=== PATIENT | female | born 1955 | race Asian ===

== ENCOUNTER 2022-07-23 08:32 | Inpatient (IN) | payer BC ==
[~2022-07-23] VITALS: Ht 162.6 cm; Wt 74.9 kg
[2022-07-23] MEDS ORDERED: CEFAZOLIN SOD 2 GM in D5W 50 ML IV ONE (09:30)
[2022-07-23] MEDS ORDERED: traMADol HCL HCL 50 MG TABLET (ULTRAM) PO PRN (11:00)
[2022-07-23] MEDS ORDERED: LORATADINE 10 MG TABLET PO PRN (11:00)
[2022-07-23] MEDS ORDERED: LOSA50TA3 PO (11:39)
[2022-07-23] MEDS ORDERED: LOVA40TA75 PO (11:39)
[2022-07-23] MEDS ORDERED: ACET-73 PO (11:39)
[2022-07-23] MEDS ORDERED: TRIA50CA PO (11:39)
[2022-07-23] MEDS ORDERED: LR 1,000 ML IV SCH (13:00)
[2022-07-23] MEDS ORDERED: METOCLOPRAMIDE HCL 10 MG/2 ML VIAL IVP PRN ×2 (13:00→15:45)
[2022-07-23] MEDS ORDERED: KETOROLAC TROMETHAMINE 30 MG VIAL IVP PRN (13:00)
[2022-07-23] MEDS ORDERED: MEPERIDINE HCL/PF 25 MG/ML DISP.SYRIN IVP PRN (13:00)
[2022-07-23] MEDS ORDERED: HYDROmorphone 1 MG/ML INJ. CARTRIDGE IVP PRN ×4 (13:00→17:00)
[2022-07-23] MEDS ORDERED: ONDANSETRON HCL 4 MG/2 ML VIAL IVP PRN ×2 (13:00→17:00)
[2022-07-23] MEDS ORDERED: BUPIVACAINE LIPOSOME/PF 266 MG/20 ML VIAL INFIL ONE (15:18)
[2022-07-23] MEDS ORDERED: LACTULOSE 20 GM/30 ML UDC PO PRN (15:45)
[2022-07-23] MEDS ORDERED: NALOXONE HCL 0.4 MG/ML AMP (NARCAN) IVP PRN ×3 (15:45)
[2022-07-23] MEDS ORDERED: DIPHENHYDRAMINE HCL 25 MG CAPSULE PO PRN (15:45)
[2022-07-23] MEDS ORDERED: BISACODYL 10 MG/SUPPOSITORY RC PRN (15:45)
[2022-07-23] MEDS ORDERED: VANCOMYCIN HCL 1,000 MG in NS 250 ML IV ONE (17:00)
[2022-07-23] MEDS: HYDROmorphone 1 MG/ML INJ. CARTRIDGE ONE ×2 (18:15→18:25)
--- NOTE | 2022-07-23 18:40 | NUR ---
CONSULTATION PAGED/CALLED Reason for Consultation: CHEST PAIN Person Who was Notified: PER ORDER WAS ALREADY TEXT Consulting Physician: Beatrice PINEDA Medical Or Surgical Instrument Maker Specialty: Ordering Physician: MANUEL
[2022-07-23 18:45] VITALS: BP_SYST 130
--- NOTE | 2022-07-23 18:57 | NUR ---
Received the pt from OR to 109A at 1830. Pt has been reporting chest pressure since the PACU and still rates mid epigastric pressure 8-9/10. Pt has been frequently belching but denied nausea. Abd soft but hypoactive. Currently ST 100's on tele monitor but remaining VS stable. Pt is reporting dizziness with her eye open but denied any visual changes, Pupils 3B. Madelaine, battery charger conveyor line, stated she has already spoken with Dr. Beatrice Daniel and repeat EKG has been ordered. Prior was showing anterolateral ischemia. Pt's lung santoyo clear and on 2L NC. The left knee has immobilizer with wound vac, currently icing knee. Pulses are present and strong. SCD to RLE. Daughter is at bedside and pt educated bank operations officer light. RH PIV
--- NOTE | 2022-07-23 19:15 | NUR ---
OPENING NOTE REPORT RECEIVED FROM DAYSHIFT NURSE. PATIENT RECEIVE LYING IN BED, AWAKE, NO S/S OF ACUTE DISTRESS. PATIENT STATES SHE IS COMFORTABLE. BREATHING EVEN AND UNLABORED. IV SITE PATENT, NO SIGNS OF INFILTRATION OR INFECTION NOTED. LEFT FOOT ELEVATED. WOUND VAC ATTACHED, SECURED, AND OPERATING WELL. CALL LIGHT WITH PATIENT. BED ALARM ON. BED IS LOCKED AND AT LOWEST POSITION. WILL CONTINUE TO MONITOR.
[2022-07-23] MEDS ORDERED: *LOVENOX 1MG/KG Q12H/PHARMACY XX ONE (20:00)
[2022-07-23] MEDS: KETOROLAC TROMETHAMINE 10 MG TABLET (TORADOL) PO SCH (20:02)
[2022-07-23 20:51] LABS: BASOPHILS % (AUTO) 0.1 % (0.0-2.0); HEMATOCRIT 34.9 % (36-48); HEMOGLOBIN 11.4 g/dL (12.0-16.0); LYMPHOCYTES # (AUTO) 1.5 K/uL (1.0-5.5); LYMPHOCYTES % (AUTO) 8.1 % (20.5-51.5); MEAN CORPUSCULAR HEMOGLOBIN 29 pg (27-31); MEAN CORPUSCULAR HGB CONC 33 % (32-36); MEAN CORPUSCULAR VOLUME 88 fL (79.0-98.0); MONOCYTES # (AUTO) 0.7 K/uL (0.0-1.0); NEUTROPHILS # (AUTO) 16.1 K/uL (1.8-7.7); NEUTROPHILS % (AUTO) 87.8 % (40.0-70.0); PLATELET COUNT (AUTO) 449 K/uL (130-430); RED BLOOD CELL COUNT(AUTO) 3.99 MIL/uL (4.2-6.2); RED CELL DISTRIBUTION WIDTH 13.2 % (9.0-15.0); WHITE BLOOD COUNT (AUTO) 18.3 K/uL (4.8-10.8)
[2022-07-23 22:36] LABS: ALANINE AMINOTRANSFERASE 28 U/L (12-78); ANION GAP 11 (5-15); ASPARTATE AMINOTRANSFERASE 48 U/L (10-37); CHLORIDE 100 mmol/L (98-107); CREATININE 1.09 mg/dL (0.55-1.30); GFR AFRICAN AMERICAN 65 mL/min (>90); GLUCOSE 260 mg/dL (70-99); TOTAL BILIRUBIN 0.4 mg/dL (0.0-1.0); UREA NITROGEN, BLOOD 19 mg/dL (8-21)
[2022-07-23] MEDS ORDERED: ENOXAPARIN SODIUM 80 MG/0.8 ML SYRINGE SUBCUT SCH (23:00)
--- NOTE | 2022-07-23 23:00 | NUR ---
ROUNDS PATIENT IN BED RESTING. HAS YET TO VOID. PATIENT STATED SHE WANTS TO WAIT A LITTLE BIT MORE AND TRY TO VOID, HOLD OFF STRAIGHT CATH AT THIS TIME. ALL NEEDS MET. WILL MONITOR.
[2022-07-23] MEDS: ACETAMINOPHEN 500 MG TABLET PO SCH (23:14)
[2022-07-23] MEDS: SENNOSIDES/DOCUSATE SODIUM 1 TAB TABLET(SENOKOT-S) PO SCH (23:14)
[2022-07-23] MEDS ORDERED: PIPERACILLIN/TAZOBACTAM 3.375 GM/VIAL (ZOSYN) IV ONE (23:29)
[2022-07-24] MEDS: PIPERACILLIN/TAZO 3.375/DEX-IS 50 ML IV SCH ×2 (00:14→05:15)
[2022-07-24] MEDS: KETOROLAC TROMETHAMINE 10 MG TABLET (TORADOL) PO SCH ×2 (00:50→10:22)
[2022-07-24 00:52] VITALS: BP_SYST 121
--- NOTE | 2022-07-24 01:00 | NUR ---
BLADDER SCAN/STRAIGHT CATH BLADDER SCAN DONE AT THIS TIME, 600 ML DETECTED. STRAIGHT CATH INSERTED, 600 ML IMMEDIATE RETURN. PATIENT TOLERATED WELL. SAMPLE COLLECTED FOR PROTOCOL UA. ALL NEEDS MET. WILL MONITOR.
[2022-07-24 01:47] LABS: BILIRUBIN,URINE NEGATIVE (NEGATIVE); BLOOD, URINE NEGATIVE (NEGATIVE); CLARITY/URINE CLEAR (CLEAR); COLOR,URINE YELLOW (YELLOW); GLUCOSE,URINE NEGATIVE (NEGATIVE); KETONES,URINE 1+ (NEGATIVE); LEUKOCYTE ESTERASE ,URINE NEGATIVE (NEGATIVE); NITRITE, URINE NEGATIVE (NEGATIVE); PROTEIN URINE NEGATIVE (NEGATIVE); UROBILINOGEN,URINE 0.2 (0.2-1.0)
[2022-07-24 02:10] VITALS: BP_SYST 123
--- NOTE | 2022-07-24 05:30 | NUR ---
BLADDER SCAN <200ML DETECTED AT THIS TIME. ALL NEEDS MET. WILL MONITOR.
[2022-07-24] MEDS: oxyCODONE HCL 5 MG TABLET PO PRN (05:34)
[2022-07-24 05:35] LABS: BASOPHILS % (AUTO) 0.1 % (0.0-2.0); HEMATOCRIT 31.5 % (36-48); HEMOGLOBIN 10.4 g/dL (12.0-16.0); LYMPHOCYTES # (AUTO) 2.1 K/uL (1.0-5.5); LYMPHOCYTES % (AUTO) 14.1 % (20.5-51.5); MEAN CORPUSCULAR HEMOGLOBIN 29 pg (27-31); MEAN CORPUSCULAR HGB CONC 33 % (32-36); MEAN CORPUSCULAR VOLUME 87 fL (79.0-98.0); MONOCYTES # (AUTO) 1.6 K/uL (0.0-1.0); MONOCYTES % (AUTO) 10.8 % (1.7-9.3); NEUTROPHILS # (AUTO) 11.3 K/uL (1.8-7.7); PLATELET COUNT (AUTO) 434 K/uL (130-430); RED BLOOD CELL COUNT(AUTO) 3.61 MIL/uL (4.2-6.2); RED CELL DISTRIBUTION WIDTH 12.8 % (9.0-15.0); WHITE BLOOD COUNT (AUTO) 15.1 K/uL (4.8-10.8)
[2022-07-24 06:27] LABS: ALBUMIN 2.8 g/dL (3.4-4.8); CREATININE 1.07 mg/dL (0.55-1.30); TOTAL BILIRUBIN 0.5 mg/dL (0.0-1.0)
--- NOTE | 2022-07-24 06:48 | NUR ---
CLOSING NOTE PATIENT IN BED, RESTING. NO S/S OF ACUTE DISTRESS. BREATHING EVEN AND UNLABORED. IV SITE PATENT, NO SIGNS OF INFILTRATION OR INFECTION NOTED. WOUND VAC ATTACHED AND OPERATING. ALL NEEDS MET THROUGHOUT SHIFT. FALL AND SAFETY PRECAUTIONS MAINTAINED THROUGHOUT SHIFT. WILL CONTINUE TO MONITOR UNTIL PATIENT CARE IS ENDORSED TO ONCOMING DAYSHIFT NURSE.
[2022-07-24 08:21] VITALS: BP_SYST 98
[2022-07-24] MEDS: ASPIRIN 81 MG TAB.CHEW PO SCH ×2 (08:31→21:14)
[2022-07-24] MEDS: ACETAMINOPHEN 500 MG TABLET PO SCH ×3 (08:32→22:39)
[2022-07-24] MEDS: SENNOSIDES/DOCUSATE SODIUM 1 TAB TABLET(SENOKOT-S) PO SCH ×2 (08:32→21:14)
[2022-07-24] MEDS: CELECOXIB 200 MG CAPSULE PO SCH ×2 (10:22→23:00)
[2022-07-24 11:35] VITALS: BP_SYST 95
[2022-07-24 15:21] VITALS: BP_SYST 92
[2022-07-24 19:48] LABS: BASOPHILS # (AUTO) 0.1 K/uL (0.0-0.2); BASOPHILS % (AUTO) 0.4 % (0.0-2.0); EOSINOPHILS # (AUTO) 0.1 K/uL (0.0-0.4); EOSINOPHILS % (AUTO) 0.4 % (0.0-4.0); HEMATOCRIT 28.8 % (36-48); HEMOGLOBIN 9.4 g/dL (12.0-16.0); LYMPHOCYTES # (AUTO) 3.6 K/uL (1.0-5.5); LYMPHOCYTES % (AUTO) 25.5 % (20.5-51.5); MEAN CORPUSCULAR HEMOGLOBIN 29 pg (27-31); MEAN CORPUSCULAR HGB CONC 33 % (32-36); MEAN CORPUSCULAR VOLUME 88 fL (79.0-98.0); MONOCYTES # (AUTO) 1.5 K/uL (0.0-1.0); MONOCYTES % (AUTO) 10.4 % (1.7-9.3); NEUTROPHILS # (AUTO) 8.8 K/uL (1.8-7.7); NEUTROPHILS % (AUTO) 63.3 % (40.0-70.0); PLATELET COUNT (AUTO) 398 K/uL (130-430); RED BLOOD CELL COUNT(AUTO) 3.27 MIL/uL (4.2-6.2); RED CELL DISTRIBUTION WIDTH 13.1 % (9.0-15.0)
[2022-07-24 20:00] VITALS: BP_SYST 132
--- NOTE | 2022-07-24 20:00 | NUR ---
RECEIVED PATIENT AT BEDSIDE. PATIENT IS AXO4 WITH NO S/S OF DISTRESS OR DISCOMFORT. NEURO CHECK DONE PATIENT IS ABLE TO WIGGLE HER TOES. MILD EDEMA AND A 6/10 PAIN. WOUND VAC IS ATTACHED AND OPERATING. ALL NEEDS WERE MET AT THIS TIME. SAFETY CHECK IS DONE AND CALL LIGHT WITH IN REACH,.
[2022-07-24] MEDS: VANCOMYCIN HCL 1,000 MG in NS 250 ML IV SCH (20:46)
[2022-07-24] MEDS: ENOXAPARIN SODIUM 40 MG/0.4 ML SYRINGE SUBCUT SCH (21:15)
[2022-07-25] VITALS: BP_SYST 132
[2022-07-25 06:30] LABS: BASOPHILS # (AUTO) 0.1 K/uL (0.0-0.2); BASOPHILS % (AUTO) 0.5 % (0.0-2.0); EOSINOPHILS # (AUTO) 0.1 K/uL (0.0-0.4); HEMATOCRIT 28.2 % (36-48); HEMOGLOBIN 9.5 g/dL (12.0-16.0); LYMPHOCYTES # (AUTO) 2.9 K/uL (1.0-5.5); LYMPHOCYTES % (AUTO) 23.5 % (20.5-51.5); MEAN CORPUSCULAR HEMOGLOBIN 30 pg (27-31); MEAN CORPUSCULAR HGB CONC 34 % (32-36); MEAN CORPUSCULAR VOLUME 88 fL (79.0-98.0); MONOCYTES # (AUTO) 1.2 K/uL (0.0-1.0); MONOCYTES % (AUTO) 9.7 % (1.7-9.3); NEUTROPHILS % (AUTO) 65.3 % (40.0-70.0); PLATELET COUNT (AUTO) 396 K/uL (130-430); RED BLOOD CELL COUNT(AUTO) 3.22 MIL/uL (4.2-6.2); RED CELL DISTRIBUTION WIDTH 13.2 % (9.0-15.0); WHITE BLOOD COUNT (AUTO) 12.2 K/uL (4.8-10.8)
--- NOTE | 2022-07-25 06:35 | NUR ---
CLOSING NOTES PATIENT IS ASLEEP IN BED. AXO 4 THROUGHOUT MY SHIFT. NEUROLOGICAL CHECKS WERE DONE. PATIENT IS ABLE TO ASSIST WITH THE BEDPAN. MILD PAIN ON LEFT LEG. NO DRAINAGE IN WOUND VAC. ALL NEEDS WERE MET AT THIS TIME. SAFETY CHECKS DONE AND CALL LIGHT WITH IN REACH.
[2022-07-25 06:44] LABS: CALCIUM 8.9 mg/dL (8.4-11.0); CREATININE 1.35 mg/dL (0.55-1.30)
[2022-07-25] MEDS ORDERED: POTASSIUM CHLORIDE 10 MEQ TAB.PRT.SR PO ONE (07:30)
[2022-07-25] MEDS ORDERED: NACL 0.9% 1,000 ML IV ONE ×2 (07:30→16:00)
--- NOTE | 2022-07-25 07:30 | NUR ---
Received Patient in bed, no c/o pain or SOB. No s/s of acute distress noted. Breathing even & unlabored. Vitals WNL. 20 gauge IV to right hand. Bed is in low, locked position. Alarm active. Call light & personal items within reach.
[2022-07-25 08:00] VITALS: BP_SYST 133
[2022-07-25] MEDS ORDERED: LOVASTATIN 20 MG TABLET PO SCH (08:00)
[2022-07-25 08:36] LABS: PROTHROMBIN TIME 9.9 SECS (9.5-12.5)
[2022-07-25] MEDS: SENNOSIDES/DOCUSATE SODIUM 1 TAB TABLET(SENOKOT-S) PO SCH ×2 (08:38→23:16)
[2022-07-25] MEDS: LOSARTAN POTASSIUM 50 MG TABLET (COZAAR) PO SCH (08:38)
[2022-07-25] MEDS: ASPIRIN 81 MG TAB.CHEW PO SCH ×2 (08:38→23:16)
[2022-07-25] MEDS: ATORVASTATIN 10 MG TABLET PO SCH (08:38)
[2022-07-25] MEDS: oxyCODONE HCL 5 MG TABLET PO PRN ×3 (08:42→21:35)
[2022-07-25] MEDS ORDERED: TRIAMTERENE 25 MG PO SCH (09:00)
[2022-07-25] MEDS: CELECOXIB 200 MG CAPSULE PO SCH ×2 (11:25→23:16)
[2022-07-25 12:00] VITALS: BP_SYST 125
[2022-07-25] MEDS ORDERED: DEXAMETHASONE SOD PHOSPHATE 4 MG/ML VIAL ONE (12:15)
[2022-07-25] MEDS ORDERED: PROPOFOL 200MG/ 20ML VIAL (DIPRIVAN) IV ONE (12:15)
[2022-07-25] MEDS ORDERED: NS 1000 ML IV.SOLN IV ONE (12:15)
[2022-07-25] MEDS ORDERED: TOBRAMYCIN SULFATE 1.2 GM VIAL ONE (12:15)
[2022-07-25] MEDS ORDERED: LIGHT MINERAL OIL 10 ML VIAL MC ONE (12:15)
[2022-07-25] MEDS ORDERED: MEPERIDINE 50 MG/ML VIAL ONE (12:15)
[2022-07-25] MEDS ORDERED: SEVOFLURANE 15 MIN GAS INH ONE (12:15)
[2022-07-25] MEDS ORDERED: TRANEXAMIC ACID 1,000 MG/10 ML VIAL ONE (12:15)
[2022-07-25] MEDS ORDERED: fentaNYL CITRATE/PF 100 MCG/2 ML AMP ONE (12:15)
[2022-07-25] MEDS ORDERED: hydrALAZINE HCL 20 MG/ML VIAL ONE (12:15)
[2022-07-25] MEDS ORDERED: VANCOMYCIN HCL 1000 MG/VIAL IV ONE (12:15)
[2022-07-25] MEDS ORDERED: WATER FOR IRRIGATION,STERILE 1,000 ML IRRIG.SOLN IR ONE (12:15)
[2022-07-25] MEDS ORDERED: ONDANSETRON HCL 4 MG/2 ML VIAL ONE (12:15)
[2022-07-25] MEDS ORDERED: NS IRRIG SOLN 1000 ML IR ONE (12:15)
[2022-07-25] MEDS ORDERED: LR 1,000 ML IV.SOLN IV ONE (12:15)
[2022-07-25 16:00] VITALS: BP_SYST 136
--- NOTE | 2022-07-25 18:45 | NUR ---
Patient currently resting in position of comfort. Patient denies pain at this time. Pain managed throughout shift with PRN meds. No signs of acute distress noted. All needs met. Bed kept in lowest position with wheels locked & bed alarm active. Call light & personal items within reach.
--- NOTE | 2022-07-25 19:30 | NUR ---
OPENING NOTE Pt is awake lying in bed. No s/s of respiratory distress. Breathing even and unlabored on RA. IV site intact and patent saline lock. Pt is s/p left knee arthroplasty, knee immobilizer and wound vac in place with minimal drainage noted. Fall and safety precautions in place with bed in lowest position, bed alarm on, and call light within reach
[2022-07-25 20:00] VITALS: BP_SYST 116
--- NOTE | 2022-07-25 22:30 | NUR ---
PICC LINE PLACEMENT Pt now has a TORIBIO picc line placed by picc line nurse Azam. Pt tolerated well
[2022-07-25] MEDS: ENOXAPARIN SODIUM 40 MG/0.4 ML SYRINGE SUBCUT SCH (23:18)
[2022-07-25] MEDS: ACETAMINOPHEN 500 MG TABLET PO SCH (23:22)
[2022-07-25] MEDS: VANCOMYCIN HCL 1,000 MG in NS 250 ML IV SCH (23:24)
[2022-07-26] VITALS: BP_SYST 132
--- NOTE | 2022-07-26 00:15 | NUR ---
ROUNDS Pt awake lying in bed. Assisted with use of bed hillman. Fall and safety checks in place
[2022-07-26] MEDS: oxyCODONE HCL 5 MG TABLET PO PRN (06:28)
--- NOTE | 2022-07-26 07:04 | NUR ---
CLOSING NOTE Pt is awake lying in bed. Assisted to the bedside commode. Wound vac dressing CDI, no drainage noted. All needs met throughout shift. Fall and safety precautions in place with bed in lowest position, bed alarm on, and call light within reach
[2022-07-26 07:35] VITALS: BP_SYST 145
--- NOTE | 2022-07-26 07:35 | NUR ---
Opening notes Patient is sitting in bed listening to her music her to say good morning, bolivian speaking. Patient Breathing even and unlabored on RA. LH 20 and a PICC line SYLVESTER. No pain, no distress, no SOB. Patient is bed bound. Bed is locked in lowest position. Call light within reach, all needs met, will continue with plan of care.
[2022-07-26 07:48] LABS: ALBUMIN 2.4 g/dL (3.4-4.8); CALCIUM 8.8 mg/dL (8.4-11.0); CREATININE 0.84 mg/dL (0.55-1.30); TOTAL BILIRUBIN 0.6 mg/dL (0.0-1.0)
[2022-07-26 07:51] LABS: BASOPHILS % (AUTO) 0.4 % (0.0-2.0); EOSINOPHILS # (AUTO) 0.3 K/uL (0.0-0.4); EOSINOPHILS % (AUTO) 2.4 % (0.0-4.0); LYMPHOCYTES # (AUTO) 2.9 K/uL (1.0-5.5); LYMPHOCYTES % (AUTO) 25.3 % (20.5-51.5); MEAN CORPUSCULAR HEMOGLOBIN 29 pg (27-31); MEAN CORPUSCULAR HGB CONC 33 % (32-36); MEAN CORPUSCULAR VOLUME 88 fL (79.0-98.0); MONOCYTES % (AUTO) 9.2 % (1.7-9.3); NEUTROPHILS # (AUTO) 7.2 K/uL (1.8-7.7); NEUTROPHILS % (AUTO) 62.7 % (40.0-70.0); PLATELET COUNT (AUTO) 342 K/uL (130-430); RED BLOOD CELL COUNT(AUTO) 3.07 MIL/uL (4.2-6.2); RED CELL DISTRIBUTION WIDTH 13.1 % (9.0-15.0); WHITE BLOOD COUNT (AUTO) 11.4 K/uL (4.8-10.8)
[2022-07-26] MEDS: ATORVASTATIN 10 MG TABLET PO SCH (08:54)
[2022-07-26] MEDS: LOSARTAN POTASSIUM 50 MG TABLET (COZAAR) PO SCH (08:54)
[2022-07-26] MEDS: SENNOSIDES/DOCUSATE SODIUM 1 TAB TABLET(SENOKOT-S) PO SCH ×2 (08:54→20:46)
[2022-07-26] MEDS: ACETAMINOPHEN 500 MG TABLET PO SCH ×3 (10:16→23:37)
[2022-07-26 12:00] VITALS: BP_SYST 138
--- NOTE | 2022-07-26 12:00 | NUR ---
Noon notes Patient is sitting in bed listening to her music. Patient Breathing even and unlabored on RA. No pain, no distress, no SOB. Patient is bed bound. Bed is locked in lowest position. Call light within reach, all needs met, will continue with plan of care.
--- NOTE | 2022-07-26 16:05 | NUR ---
Notes Patient in bed with family visiting. no pain no sob no distress. Patient is bed bound. Bed is locked in lowest position. Call light within reach, all needs met, will continue with plan of care..
[2022-07-26 16:56] VITALS: BP_SYST 141
--- NOTE | 2022-07-26 18:27 | NUR ---
Closing notes Patient is sitting in bed listening to her music her to say good morning, iraqi speaking. Patient is breathing even and unlabored on RA. LH 20 and a PICC line SYLVESTER. No pain, no distress, no SOB. Patient is bed bound. Bed is locked in lowest position. Call light within reach, all needs met, will endorse to metal turner nurse.
--- NOTE | 2022-07-26 19:30 | NUR ---
OPENING NOTE Pt is awake lying in bed. No s/s of respiratory distress. Breathing even and unlabored on RA. Left knee wound vac in place with knee immobilizer. No c/o pain at this time. Fall and safety precautions in place with bed in lowest position, bed alarm on, and call light within reach
[2022-07-26 20:00] VITALS: BP_SYST 109
[2022-07-26] MEDS: VANCOMYCIN HCL 1,000 MG in NS 250 ML IV SCH (20:46)
[2022-07-26] MEDS: APIXABAN 2.5 MG TABLET PO SCH (20:48)
[2022-07-27] VITALS: BP_SYST 128
--- NOTE | 2022-07-27 00:15 | NUR ---
ROUNDS Pt is awake lying in bed. Assisted to the bedside commode. No s/s of acute distress. Fall and safety checks in place
[2022-07-27] MEDS: oxyCODONE HCL 5 MG TABLET PO PRN ×3 (06:34→23:09)
--- NOTE | 2022-07-27 06:58 | NUR ---
CLOSING NOTE Pt is awake lying in bed. No s/s of respiratory distress. Breathing even and unlabored on RA. Administered PRN pain medication and assisted to the bedside commode. Left knee wound vac in place with knee immobilizer. All needs met throughout shift. Fall and safety precautions in place with bed in lowest position, bed alarm on, and call light within reach
[2022-07-27 08:00] VITALS: BP_SYST 131
--- NOTE | 2022-07-27 08:00 | NUR ---
Opening Notes Patient is Aox4. Uses bedside commode with assist. No ss of distress noted. breathing is even and nonlabored, on room air. Vital signs obtained, as documented. Patient denies pain. denies SOB. Iv patent. PIcc line patent. Bed locked, alarm on, and at lowest position. Call light within reach.
[2022-07-27] MEDS: SENNOSIDES/DOCUSATE SODIUM 1 TAB TABLET(SENOKOT-S) PO SCH ×2 (09:32→21:10)
[2022-07-27] MEDS: ATORVASTATIN 10 MG TABLET PO SCH (09:32)
[2022-07-27] MEDS: LOSARTAN POTASSIUM 50 MG TABLET (COZAAR) PO SCH (09:32)
[2022-07-27] MEDS: ACETAMINOPHEN 500 MG TABLET PO SCH ×3 (09:33→23:09)
[2022-07-27] MEDS: APIXABAN 2.5 MG TABLET PO SCH ×2 (09:34→21:15)
--- NOTE | 2022-07-27 09:58 | NUR ---
NOTES AM MEDICATIONS GIVEN. WOUND VAC CHANGED. NO ACTIVE BLEEDING. COUNTED 29 DENILSON. WOUND CLEANED WITH NS. PAT DRIED WITH GAUZE. WOUND VAC IN PLACE AND SECURED.
[2022-07-27 11:35] VITALS: BP_SYST 141
--- NOTE | 2022-07-27 12:00 | NUR ---
Notes Assisted patient to bedside commode. Patient back to bed. No distress noted. Patient now eating lunch. All Safety precautions in place and call light within reach.
[2022-07-27] MEDS ORDERED: CEFA1FRO IV (14:43)
[2022-07-27] MEDS ORDERED: RIFA150C7 PO ×2 (14:43)
--- NOTE | 2022-07-27 15:37 | NUR ---
PHYSICAL THERAPY CO-SIGN The Physical Therapy Progress Notes documented by Pilot Fuel Engineer have been reviewed. Reviewed/Co-Signed by: Varun Sheridan Documentation Done by:CANDI ELAM Addendum: 07/27/22 at 1537 by Varun Sheridan PT Amended: Links added.
[2022-07-27 16:00] VITALS: BP_SYST 125
--- NOTE | 2022-07-27 16:00 | NUR ---
notes Patient resting, eyes closed. No distress noted. breathing is even and nonlabored, on room air. No facial grimace. All safety precautions in place and call light within reach.
--- NOTE | 2022-07-27 19:06 | NUR ---
Closing notes Patient eating dinner. No ss of distress noted. Breathing is even and nonlabored on room air. No SOB noted. Patient denies severe pain. IV patent. wound vac in place and active. All needs met. Patient stable. Bed locked, alarm on, and at lowest position. call light within reach.
[2022-07-27 20:00] VITALS: BP_SYST 115
[2022-07-27] MEDS: VANCOMYCIN HCL 1,000 MG in NS 250 ML IV SCH (21:10)
[2022-07-28 00:15] VITALS: BP_SYST 148
[2022-07-28] MEDS ORDERED: APIX2.5T PO (07:30)
[2022-07-28] MEDS ORDERED: RIFA150C7 PO (07:33)
[2022-07-28] MEDS: LOSARTAN POTASSIUM 50 MG TABLET (COZAAR) PO SCH (08:08)
[2022-07-28] MEDS: SENNOSIDES/DOCUSATE SODIUM 1 TAB TABLET(SENOKOT-S) PO SCH ×2 (08:08→21:22)
[2022-07-28] MEDS: oxyCODONE HCL 5 MG TABLET PO PRN ×4 (08:08→21:22)
[2022-07-28] MEDS: CEFAZOLIN 2 GM IVPB PREMIX 50 ML IV SCH ×2 (08:10→21:21)
[2022-07-28] MEDS: ATORVASTATIN 10 MG TABLET PO SCH (08:10)
[2022-07-28] MEDS: APIXABAN 2.5 MG TABLET PO SCH ×2 (08:10→21:28)
--- NOTE | 2022-07-28 08:18 | NUR ---
ASSISTED PATIENT TO USE BEDSIDE COMMODE , S/P LEFT KNEE SURGERY WITH ICE PACK AND IMMOBULIZER ON, C/O LEG PAIN 8/10, OXYCODEINE 10 MG PO GIVEN ORDERED. WILL CONTINUE TO MONITOR.
[2022-07-28 11:46] VITALS: BP_SYST 159
--- NOTE | 2022-07-28 12:20 | NUR ---
PT WALKED WITH PATIENT ,TOLERATED WELL, NO C/O PAIN AT THIS TIME.
[2022-07-28] MEDS: ACETAMINOPHEN 500 MG TABLET PO SCH ×3 (12:44→23:09)
[2022-07-28 15:50] VITALS: BP_SYST 141
--- NOTE | 2022-07-28 15:54 | NUR ---
PHYSICAL THERAPY CO-SIGN The Physical Therapy Progress Notes documented by Bench Assembler Operator have been reviewed. Reviewed/Co-Signed by: Varun Sheridan Documentation Done by:CANDI ELAM Addendum: 07/28/22 at 1554 by Varun Sheridan PT Amended: Links added.
--- NOTE | 2022-07-28 18:46 | NUR ---
WOUND VAC IS NOT ARRANGED YET, SO PATIENT CAN'T GO HOME WITHOUT IT PER CHARGE NURSE. PATIENT IS AWARE .
[2022-07-28 20:00] VITALS: BP_SYST 137
[2022-07-29 00:41] VITALS: BP_SYST 146
[2022-07-29] MEDS: oxyCODONE HCL 5 MG TABLET PO PRN (06:19)
[2022-07-29 08:00] VITALS: BP_SYST 164
[2022-07-29] MEDS: ACETAMINOPHEN 500 MG TABLET PO SCH (08:44)
[2022-07-29] MEDS: LOSARTAN POTASSIUM 50 MG TABLET (COZAAR) PO SCH (08:45)
[2022-07-29] MEDS: SENNOSIDES/DOCUSATE SODIUM 1 TAB TABLET(SENOKOT-S) PO SCH (08:45)
[2022-07-29] MEDS: CEFAZOLIN 2 GM IVPB PREMIX 50 ML IV SCH (08:46)
[2022-07-29] MEDS: APIXABAN 2.5 MG TABLET PO SCH (08:48)
[2022-07-29] MEDS: ATORVASTATIN 10 MG TABLET PO SCH (09:02)
[2022-07-29 11:31] VITALS: BP_SYST 115
[2022-07-29 13:08] VITALS: BP_SYST 115
--- NOTE | 2022-07-29 14:32 | NUR ---
PHYSICAL THERAPY CO-SIGN The Physical Therapy Progress Notes documented by Veterinary Physiologist have been reviewed. Reviewed/Co-Signed by: Varun Sheridan Documentation Done by:CANDI ELAM Addendum: 07/29/22 at 1432 by Varun Sheridan PT Amended: Links added.
--- NOTE | 2022-07-29 14:32 | NUR ---
Patient d/c home via wheelchair. Discharge instructions given to patient. Verbalized understanding. IV catheter removed intact. Vitals stable. No complaints of pain, dizziness or shortness of breath.
== END 2022-07-29 13:45 | disposition home health service (06) | DRG 464 ==
LOC: SMU 08:32 → STU 18:55 → SMU 07-24 22:41
PROVIDERS: ADMIT Student in an Organized Health Care Education/Training Program; ATTEND Student in an Organized Health Care Education/Training Program
PROC: 0SHD08Z Insertion of Spacer into Left Knee Joint, Open Approach (ICD-10-PCS; 2022-07-23)
PROC: 0SPD0JZ Removal of Synthetic Substitute from Left Knee Joint, Open Approach (ICD-10-PCS; principal; 2022-07-23 12:20)
PROC: 02HV33Z Insertion of Infusion Device into Superior Vena Cava, Percutaneous Approach (ICD-10-PCS; 2022-07-26)
DX: T84.54XA Infection and inflammatory reaction due to internal left knee prosthesis, initial encounter (principal); E44.0 Moderate protein-calorie malnutrition; M00.9 Pyogenic arthritis, unspecified; Z68.28 Body mass index [BMI] 28.0-28.9, adult; R07.89 Other chest pain; I10 Essential (primary) hypertension; E78.5 Hyperlipidemia, unspecified; X58.XXXA Exposure to other specified factors, initial encounter; Z91.040 Latex allergy status; Z88.8 Allergy status to other drugs, medicaments and biological substances
CPT/HCPCS: 36415; 71045; 73560-TC; 80048; 80053; 80202; 81003; 84484; 85025; 85610-TC; 85651-TC; 85730-TC; 86140; 87040; 87070; 87070-TC; 87075-TC; 87081; 87101; 87186-TC; 88300; 88304; 88305; 88311; 93005; 96379; 97110-GP; 97116-GP; 97530-GP; C1713; C1751; C9290; G0378; J0360; J0690; J0696; J1100; J1170; J1650; J2175; J2405; J2543; J2704; J2765; J3010; J3260; J3370; J3490; J7030; J7050; J7060; J7120; L1830

== ENCOUNTER 2022-10-22 05:47 | Inpatient (IN) | payer BC ==
[~2022-10-22] VITALS: Ht 162.6 cm; Wt 79.0 kg
[2022-10-22] VITALS (7 sets, daily range): BP systolic 105–138; PULSE 88–102; RESP 16–18; TEMP 97.4–97.9; O2SAT 94–97
[~2022-10-22 05:47] MED LIST: ACET-73 PO; APIX2.5T PO; CEFA1FRO IV; LOSA50TA3 PO; LOVA40TA75 PO; RIFA150C7 PO; TRIA50CA PO
[2022-10-22] MEDS ORDERED: CELECOXIB 100 MG CAPSULE PO ONE (06:15)
[2022-10-22] MEDS ORDERED: GABAPENTIN 300 MG CAPSULE PO ONE (06:15)
[2022-10-22] MEDS ORDERED: oxyCODONE HCL 10 MG TAB.ER.12H PO ONE ×2 (06:15→06:17)
[2022-10-22] MEDS ORDERED: SCOPOLAMINE HYDROBROMIDE 1 MG PATCH .72 H (TRANSDERM-SCOP) TD ONE ×2 (06:15→06:16)
[2022-10-22] MEDS ORDERED: ACETAMINOPHEN 500 MG TABLET PO ONE (06:15)
[2022-10-22] MEDS ORDERED: CELECOXIB 100 MG CAPSULE ONE (06:16)
[2022-10-22] MEDS ORDERED: ACETAMINOPHEN 500 MG TABLET ONE (06:16)
[2022-10-22] MEDS ORDERED: GABAPENTIN 300 MG CAPSULE ONE (06:17)
[2022-10-22] MEDS ORDERED: CEFAZOLIN SOD 2 GM in D5W 50 ML IV ONE (06:30)
[2022-10-22] MEDS ORDERED: TRIA50CA PO (06:57)
[2022-10-22] MEDS ORDERED: LOSA50TA3 PO (06:57)
[2022-10-22] MEDS ORDERED: LOVA40TA75 PO (06:57)
[2022-10-22] MEDS ORDERED: fentaNYL CITRATE/PF 100 MCG/2 ML AMP ONE (07:45)
[2022-10-22] MEDS ORDERED: LR 1,000 ML IV.SOLN IV ONE (07:45)
[2022-10-22] MEDS ORDERED: SEVOFLURANE 15 MIN GAS INH ONE (07:45)
[2022-10-22] MEDS ORDERED: TRANEXAMIC ACID 1,000 MG/10 ML VIAL ONE (07:45)
[2022-10-22] MEDS ORDERED: NS 1000 ML IV.SOLN IV ONE (07:45)
[2022-10-22] MEDS ORDERED: VANCOMYCIN HCL 1000 MG/VIAL IV ONE (07:45)
[2022-10-22] MEDS ORDERED: NS IRRIG SOLN 1000 ML IR ONE (07:45)
[2022-10-22] MEDS ORDERED: LABETALOL 100 MG/ 20ML VIAL ONE (07:45)
[2022-10-22] MEDS ORDERED: BUPIVACAINE /PF 0.25% 30 ML VIAL INJ ONE (07:45)
[2022-10-22] MEDS ORDERED: PROPOFOL 200MG/ 20ML VIAL (DIPRIVAN) IV ONE (07:45)
[2022-10-22] MEDS ORDERED: ONDANSETRON HCL 4 MG/2 ML VIAL ONE (07:45)
[2022-10-22] MEDS ORDERED: DEXAMETHASONE SOD PHOSPHATE 4 MG/ML VIAL ONE (07:45)
[2022-10-22] MEDS ORDERED: TOBRAMYCIN SULFATE 1.2 GM VIAL ONE (07:45)
[2022-10-22] MEDS ORDERED: MEPERIDINE 50 MG/ML VIAL ONE (07:45)
[2022-10-22] MEDS ORDERED: ROPIVACAINE HCL/PF 5 MG/ML 0.5% 30 ML VIAL ONE (07:45)
[2022-10-22] MEDS ORDERED: HYDROmorphone 1 MG/ML INJ. CARTRIDGE IVP PRN ×4 (09:00→11:00)
[2022-10-22] MEDS ORDERED: ONDANSETRON HCL 4 MG/2 ML VIAL IVP PRN ×2 (09:00→11:45)
[2022-10-22] MEDS ORDERED: MEPERIDINE HCL/PF 25 MG/ML DISP.SYRIN IVP PRN (09:00)
[2022-10-22] MEDS ORDERED: METOCLOPRAMIDE HCL 10 MG/2 ML VIAL IVP PRN ×2 (09:00→12:30)
[2022-10-22] MEDS ORDERED: LR 1,000 ML IV SCH (09:00)
[2022-10-22] MEDS ORDERED: traMADol HCL HCL 50 MG TABLET (ULTRAM) PO PRN (11:00)
[2022-10-22] MEDS ORDERED: oxyCODONE HCL 5 MG TABLET PO PRN ×2 (11:00)
[2022-10-22] MEDS ORDERED: LORATADINE 10 MG TABLET PO PRN (11:00)
[2022-10-22] MEDS ORDERED: NALOXONE HCL 0.4 MG/ML AMP (NARCAN) IVP PRN ×3 (12:30)
[2022-10-22] MEDS ORDERED: DIPHENHYDRAMINE HCL 25 MG CAPSULE PO PRN (12:30)
[2022-10-22] MEDS ORDERED: LACTULOSE 20 GM/30 ML UDC PO PRN (12:30)
[2022-10-22] MEDS ORDERED: BISACODYL 10 MG/SUPPOSITORY RC PRN (12:30)
[2022-10-22] MEDS: ceFAZolin SODIUM 2 GM in D5W 50 ML IV SCH ×2 (15:04→23:47)
[2022-10-22] MEDS: ACETAMINOPHEN 500 MG TABLET PO SCH ×2 (15:05→22:17)
[2022-10-22] MEDS: KETOROLAC TROMETHAMINE 10 MG TABLET (TORADOL) PO SCH ×2 (15:06→22:10)
[2022-10-22] MEDS ORDERED: LOVASTATIN 20 MG TABLET PO SCH (18:00)
[2022-10-22] MEDS: SENNOSIDES/DOCUSATE SODIUM 1 TAB TABLET(SENOKOT-S) PO SCH (20:47)
[2022-10-22] MEDS ORDERED: ATORVASTATIN 10 MG TABLET PO SCH (21:00)
[2022-10-23 00:38] VITALS: BP_SYST 104; PULSE 86; RESP 16; TEMP 98.2; O2SAT 96
[2022-10-23] MEDS: KETOROLAC TROMETHAMINE 10 MG TABLET (TORADOL) PO SCH (05:17)
[2022-10-23] MEDS: ACETAMINOPHEN 500 MG TABLET PO SCH ×2 (05:18→16:29)
[2022-10-23 05:43] LABS: BASOPHILS % (AUTO) 0.2 % (0.0-2.0); HEMATOCRIT 27.6 % (36-48); HEMOGLOBIN 8.8 g/dL (12.0-16.0); LYMPHOCYTES # (AUTO) 2.1 K/uL (1.0-5.5); LYMPHOCYTES % (AUTO) 18.4 % (20.5-51.5); MEAN CORPUSCULAR HEMOGLOBIN 29 pg (27-31); MEAN CORPUSCULAR HGB CONC 32 % (32-36); MEAN CORPUSCULAR VOLUME 91 fL (79.0-98.0); MONOCYTES # (AUTO) 1.5 K/uL (0.0-1.0); MONOCYTES % (AUTO) 12.9 % (1.7-9.3); NEUTROPHILS # (AUTO) 7.9 K/uL (1.8-7.7); NEUTROPHILS % (AUTO) 68.5 % (40.0-70.0); PLATELET COUNT (AUTO) 238 K/uL (130-430); RED BLOOD CELL COUNT(AUTO) 3.04 MIL/uL (4.2-6.2); RED CELL DISTRIBUTION WIDTH 13.4 % (9.0-15.0); WHITE BLOOD COUNT (AUTO) 11.5 K/uL (4.8-10.8)
[2022-10-23 06:24] LABS: ALBUMIN 2.7 g/dL (3.4-4.8); CALCIUM 8.4 mg/dL (8.4-11.0); CREATININE 1.03 mg/dL (0.55-1.30); TOTAL BILIRUBIN 0.5 mg/dL (0.0-1.0)
[2022-10-23] MEDS: ceFAZolin SODIUM 2 GM in D5W 50 ML IV SCH (06:39)
[2022-10-23] MEDS ORDERED: APIXABAN 2.5 MG TABLET PO SCH (09:00)
[2022-10-23] MEDS ORDERED: LOSARTAN POTASSIUM 50 MG TABLET (COZAAR) PO SCH (09:00)
[2022-10-23] MEDS: SENNOSIDES/DOCUSATE SODIUM 1 TAB TABLET(SENOKOT-S) PO SCH (09:01)
[2022-10-23 10:38] VITALS: O2SAT 98
[2022-10-23] MEDS ORDERED: CELECOXIB 200 MG CAPSULE PO SCH (11:00)
[2022-10-23 11:30] VITALS: BP_SYST 98; PULSE 77; RESP 18; TEMP 98.6; O2SAT 99
[2022-10-23 14:35] VITALS: BP_SYST 102; PULSE 92; RESP 16; TEMP 96.8; O2SAT 98
[2022-10-23 17:30] VITALS: BP_SYST 96; PULSE 78; RESP 19; TEMP 98.1; O2SAT 99
== END 2022-10-23 18:00 | disposition home health service (06) | DRG 470 ==
LOC: SMU 05:47
PROVIDERS: ADMIT Student in an Organized Health Care Education/Training Program; ATTEND Student in an Organized Health Care Education/Training Program
PROC: 0QP Lower Bones, Removal (ICD-10-PCS; 2022-10-22)
PROC: 0SRD0J9 Replacement of Left Knee Joint with Synthetic Substitute, Cemented, Open Approach (ICD-10-PCS; principal; 2022-10-22 07:50)
DX: T84.54XA Infection and inflammatory reaction due to internal left knee prosthesis, initial encounter (principal)
CPT/HCPCS: 36415; 73560-TC; 80053; 85025; 87070-TC; 87075-TC; 87081; 87101; 88304; 88305; 88311; 96379; 97116-GP; 97163-GP; 97530-GP; C1713; C1776; J0690; J1100; J2175; J2405; J2704; J3010; J3260; J3370; J3490; J7030; J7060; J7120; L1830